=== PATIENT | female | born 1965 | race Caucasian/White ===

== ENCOUNTER 2022-06-27 13:35 | Emergency (ER) | payer OTHER, SELFPAY ==
--- NOTE | ~2022-06-27 | XR_ITS ---
EXAMINATION: XR abdomen obstructive series DATE: 06/27/2022 14:24 INDICATION: Right lower quadrant pain, constipation TECHNIQUE: Upright and supine views of the abdomen were obtained. COMPARISON: None. FINDINGS: The lungs are free of acute opacities. There is no free intraperitoneal gas. There are no d ilated loops of bowel. There is an expected volume of colonic stool. A right upper quadrant calcifica tion likely reflect cholelithiasis. There is mild osteoarthritis of the hips. IMPRESSION: 1. Nonobstructive bowel gas pattern. 2. Probable cholelithiasis. Reviewed, dictated and finalized at location B.
--- NOTE | 2022-06-27 13:47 | ED.ABDPAIN ---
HPI - Abdominal Pain General Chief Complaint: Abdominal Pain Stated Complaint: ABD/SIDE PAIN Time Seen by Provider: 06/27/22 14:05 Source: patient Mode of arrival: ambulatory Limitations: no limitations History of Present Illness HPI narrative: Ms. Ghotra is a 56-year-old female patient presenting to the clinic today with complaints of right upper quadrant abdominal pain that is radiating into her back. She reports that this was worse over the weekend and can it comes and goes in waves. She reports that she ate some chicken tenders over the weekend and this probably was not a good idea for her. She thinks that she may be having a gallbladder attack. She contacted her PCP and they instructed her to come to the urgent care. She denies any fever, chills, chest pain, or shortness of breath. She has also had some nausea with this but no vomiting or diarrhea. She states that she is not currently in any discomfort at the time of visit. Related Data Home Medications Medication Instructions Recorded Confirmed No Home Medications 06/27/22 06/27/22 Allergies Allergy/AdvReac Type Severity Reaction Status Date / Time No Known Allergies Allergy Verified 06/27/22 14:02 Review of Systems Review of Systems: Pertinent positives per HPI. Patient denies any fever, chills, rash, headache, visual changes, dizziness, cough, runny nose, sore throat, shortness of breath, chest pain, palpitations, vomiting, diarrhea, constipation, or any urinary issues. PMFSH Comments At the time of my signature, I reviewed and agree with the nursing past medical, surgical, social, and family history. There is no relevant family history pertinent to the patient complaint. Exam Narrative: General: Well-developed, well nourished, in no apparent distress. Head: Normocephalic, atraumatic. Cardio: Regular rate and rhythm, s1 and s2 normal, no murmur appreciated. Resp: Clear to auscultation bilaterally, no rhonchi, rales, wheezing or rubs. Abdomen: Soft, pliable, bowel sounds present in all quadrants, mild tender to palpation over the right upper quadrant, no organomegly, no CVAT tenderness. Course Course Emergency Course: Portions of this record may have been created with voice recognition software. Level of Care: Express Care Visit Vital Signs Vital signs: Vital Signs Temperature 37.0 C 06/27/22 14:01 Pulse Rate 63 06/27/22 14:01 Respiratory Rate 16 06/27/22 14:01 Blood Pressure 137/92 H 06/27/22 14:01 Pulse Oximetry 100 06/27/22 14:01 Oxygen Delivery Room Air 06/27/22 14:01 Temperature 37.0 C 06/27/22 14:03 Pulse Rate 63 06/27/22 14:03 Respiratory Rate 16 06/27/22 14:03 Blood Pressure 137/92 H 06/27/22 14:03 Pulse Oximetry 100 06/27/22 14:03 Oxygen Delivery Room Air 06/27/22 14:03 Vital signs reviewed MDM - Abdominal Pain MDM Narrative Medical decision making narrative: At the time of visit patient is resting comfortably on the exam table. Urinalysis was performed and showed that she had 1+ leukocyte. She denies have any urinary symptoms. I suspect that this may be a contaminant and I will send for culture. X-ray obstructive series was completed and showed that she had probable cholelithiasis. She denies any pain currently and she is nontoxic-appearing. Recommend follow-up with her PCP for right upper quadrant ultrasound and lab work. If her symptoms worsen she should go to the emergency room. Supportive measures were discussed with the patient she voiced understanding of discharge instructions and agrees to treatment plan. Differential Diagnosis Differential diagnosis: Likely abdominal pain, acute appendicitis, calculus of kidney, constipation, pancreatitis, small bowel obstruction and other (Cholelithiasis, cholecystitis) Lab Data Labs: Urine Glucose Negative Reference Range: Negative Urine Bilirubin Negative
[2022-06-27 14:01] VITALS: BP 137/92; PULSE 63; RESP 16; TEMP 37; O2SAT 100
[2022-06-27 14:03] VITALS: BP 137/92; PULSE 63; RESP 16; TEMP 37; O2SAT 100
== END 2022-06-27 14:51 | disposition home or self-care (01) ==
PROVIDERS: Emergency Provider Nurse Practitioner Family
DX: K80.80 Other cholelithiasis without obstruction (principal); R10.11 Right upper quadrant pain
CPT/HCPCS: 74019; 81003; 87086; 99213; G0463